=== PATIENT | male | born 1940 | race Caucasian/White ===

== ENCOUNTER 2022-03-16 16:15 | Outpatient (CLI) | payer MEDICARE | END 2022-03-16 16:16 | disposition home or self-care (01) | LOC: LABBT 16:15 | PROVIDERS: ATTEND Ophthalmology Retina Specialist | DX: H35.342 Macular cyst, hole, or pseudohole, left eye (principal); H54.7 Unspecified visual loss; Z20.822 Contact with and (suspected) exposure to COVID-19 | CPT/HCPCS: 87811 ==

== ENCOUNTER 2022-03-18 06:37 | Day surgery (SDC) | payer MEDICARE ==
[2022-03-16 16:25] VITALS: BMI 21.3
[~2022-03-18 06:37] MED LIST: Fluorouracil 100 MG, Enoxaparin Sodium 25 MG, EPINEPHrine 0.3 MG in Ophthalmic Irrigati... IRR SCH; Midazolam HCl 2 mg/2 ml Vial ONE; fentaNYL Citrate/PF 100 MCG/2 ML SYRINGE ONE
[2022-03-18] MEDS ORDERED: Cyclopentolate 1% Opth Drop 2 ML BOT ONE (06:53)
[2022-03-18] MEDS ORDERED: Phenylephrine 2.5% Ophth Soln 5 ML BOT ONE (06:53)
[2022-03-18] MEDS ORDERED: PROPOFOL 200 MG/20 ML VIAL ONE (07:58)
[2022-03-18] MEDS ORDERED: Lidocaine 1% MPF 2 ML VIAL ONE (07:58)
[2022-03-18] MEDS ORDERED: Indocyanine Green 25 MG/10 ML VIAL ONE (07:58)
[2022-03-18] MEDS ORDERED: Lidocaine 4% PF 5 ML AMP ONE (07:58)
[2022-03-18] MEDS ORDERED: Triamcinolone 40 MG/ML VIAL ONE (07:58)
[2022-03-18] MEDS ORDERED: Bupivacaine 0.75% 10 ML VIAL ONE (07:58)
[2022-03-18] MEDS ORDERED: Enoxaparin Sodium 30 MG/0.3 ML SYRINGE ONE (07:58)
[2022-03-18] MEDS ORDERED: CEFAZOLIN 1 GM VIAL ONE (07:58)
[2022-03-18] MEDS ORDERED: Erythromycin Base 0.5% Oint 1 GM TUBE EA EYE SCH (08:00)
== END 2022-03-18 10:00 | disposition home or self-care (01) ==
LOC: SDC 06:37
PROVIDERS: ATTEND Ophthalmology Retina Specialist
PROC: 08T53ZZ Resection of Left Vitreous, Percutaneous Approach (ICD-10-PCS; principal; 2022-03-18)
PROC: 08NF3ZZ Release Left Retina, Percutaneous Approach (ICD-10-PCS; 2022-03-18)
DX: H35.342 Macular cyst, hole, or pseudohole, left eye (principal); Z79.82 Long term (current) use of aspirin; Z79.84 Long term (current) use of oral hypoglycemic drugs; Z79.899 Other long term (current) drug therapy; Z88.1 Allergy status to other antibiotic agents; Z95.1 Presence of aortocoronary bypass graft
CPT/HCPCS: 67025; J0171; J0690; J1650; J2250; J2704; J3301; J3490; J9190

== ENCOUNTER 2022-05-08 13:45 | Emergency (ER) | payer MEDICARE, OTHER ==
[2022-05-08 14:21] LABS: #Basophils 0.1 thou/uL (0.0-0.2); #Eosinphils 0.3 thou/uL (0.0-0.7); #Lymphocytes 2.1 thou/uL (1.20-3.40); #Monocytes 0.9 thou/uL (0.11-0.59); #Neutrophils 7.3 thou/uL (1.40-6.50); %Basophils 0.8 % (0.0-1.0); %Eosinophils 2.7 % (0.0-10.0); %Lymphocytes 19.3 % (21.0-51.0); %Monocytes 8.4 % (0.0-10.0); %Neutrophils 68.9 % (42.0-75.0); Mean Corpuscular Hemoglobin 32.8 pg (27.0-31.0); Mean Corpuscular Volume 93.6 fl (78.0-98.0); Mean Platelet Volume 6.6 fL (7.4-10.4); Platelet Count 235 thou/uL (130-400); Red Blood Cell (RBC) Count 4.26 mill/uL (4.70-6.10); White Blood Cell (WBC) Count 10.6 thou/uL (4.8-10.8)
[2022-05-08 14:37] LABS: ALT (SGPT) 16 U/L (8-55); AST (SGOT) 19 U/L (5-34); Albumin 4.1 g/dL (3.4-4.8); Alkaline Phosphatase 92 U/L (40-110); Anion Gap 12 mmol/L (10-20); BUN (Urea Nitrogen) 14 mg/dL (8.4-25.7); Bilirubin, Total 0.5 mg/dL (0.2-1.2); Calc. Creatinine Clearance 0 mL/min (70-130); Calcium 9.6 mg/dL (7.8-10.44); Carbon Dioxide 23 mmol/L (23-31); Chloride 101 mmol/L (98-107); Estimated GFR 90; Globulin 2.8 g/dL (2.4-3.5); Glucose 135 mg/dL (83-110); Potassium 4.3 mmol/L (3.5-5.1); Protein, Total 6.9 g/dL (5.8-8.1); Sodium 132 mmol/L (136-145)
[2022-05-08 14:49] LABS: Bilirubin Negative (Negative); Blood, Urine Large (Negative); Glucose, Urine (Dipstick) Negative (Negative); Ketone, Urine Negative (Negative); Leukocyte Negative (Negative); Nitrite Negative (Negative); Protein, Urine (Dipstick) 30 mg/dL (Neg-Trace); Urobilinogen 0.2 mg/dL (Less than 2)
[2022-05-08 14:51] LABS: Clarity Turbid (Clear)
[2022-05-08 14:58] LABS: Bacteria/HPF Rare-Few HPF (None Seen); RBC/HPF Greater than 50 HPF (0-3); WBC/HPF 0-3 HPF (0-3)
== END 2022-05-08 16:30 | disposition home or self-care (01) ==
LOC: ERS 13:45
DX: R31.9 Hematuria, unspecified (principal); R30.0 Dysuria; E78.5 Hyperlipidemia, unspecified; I10 Essential (primary) hypertension; J44.9 Chronic obstructive pulmonary disease, unspecified; E11.9 Type 2 diabetes mellitus without complications; Z79.84 Long term (current) use of oral hypoglycemic drugs; Z79.899 Other long term (current) drug therapy
CPT/HCPCS: 36415; 74176; 80053; 81003; 81015; 85025; 85610; 85730

== ENCOUNTER 2022-06-18 08:22 | Outpatient (CLI) | payer OTHER | END 2022-06-18 08:23 | disposition home or self-care (01) | LOC: NM 08:22 | PROVIDERS: ATTEND Urology | DX: C61 Malignant neoplasm of prostate (principal) | CPT/HCPCS: 78306; A9503 ==

== ENCOUNTER 2022-10-19 16:16 | Inpatient (IN) | payer MEDICARE, OTHER ==
[2022-10-19] MEDS ORDERED: Insulin Regular 300 UNITS/3 ML VIAL SC PRN (18:17)
[2022-10-19] MEDS ORDERED: Dextrose 50% Abboject 50 ML SYRINGE SLOW IVP PRN (18:17)
[2022-10-19] MEDS ORDERED: Ondansetron PF 4 MG/2 ML Vial IVP PRN (18:17)
[2022-10-19] MEDS ORDERED: Morphine 2 MG/ML VIAL SLOW IVP PRN (18:17)
[2022-10-19] MEDS ORDERED: Ipratropium/Albuterol 3 ML NEB NEB PRN (18:17)
[2022-10-19] MEDS ORDERED: Dextrose 5% in Water 1,000 ML IV PRN (18:17)
[2022-10-19] MEDS ORDERED: Promethazine HCl 25 MG/ML VIAL IM PRN (18:17)
[2022-10-19] MEDS ORDERED: Non-Formulary Item 1 EACH (Albuterol Hfa (Or) 200 PUFF Inh) INH PRN (18:20)
[2022-10-19] MEDS ORDERED: traMADol HCl 50 MG TAB PO PRN (18:28)
[2022-10-19] MEDS ORDERED: Cyclobenzaprine 10 MG TAB PO PRN (18:28)
[2022-10-19] MEDS ORDERED: Ipratropium Bromide 2.5 ml Neb NEB PRN (18:29)
[2022-10-19] MEDS ORDERED: Acetaminophen 500 MG TAB PO SCH (18:30)
[2022-10-19] MEDS ORDERED: Sodium Chloride 0.9% 1,000 ML IV SCH (18:30)
[2022-10-19] MEDS: Mometasone/Formoterol 200/5 60 PUFF INH SCH (19:23)
[2022-10-19 19:41] VITALS: BMI 22.2
[2022-10-19] MEDS: Famotidine/PF 20 mg/2ml Vial SLOW IVP SCH (21:21)
[2022-10-19] MEDS: Melatonin 3 MG TAB PO SCH (21:21)
[2022-10-19] MEDS: Senokot S 8.6-50 MG TAB PO SCH (21:22)
[2022-10-19] MEDS: Atorvastatin Calcium 40 MG TAB PO SCH (21:22)
[2022-10-19] MEDS: Tamsulosin HCl 0.4 MG CAP PO SCH (21:22)
[2022-10-19] MEDS: Gabapentin 100 MG CAP PO SCH (21:22)
[2022-10-19] MEDS: Acetaminophen 500 MG TAB PO SCH (23:35)
[2022-10-19] MEDS: traMADol HCl 50 MG TAB PO SCH (23:37)
[2022-10-20] MEDS ORDERED: Sevoflurane 250 ML INH ANEST BOTTLE ONE (04:27)
[2022-10-20] MEDS: traMADol HCl 50 MG TAB PO SCH ×3 (05:14→17:27)
[2022-10-20] MEDS: Acetaminophen 500 MG TAB PO SCH ×3 (05:15→17:27)
[2022-10-20 07:05] LABS: #Eosinphils 0.1 thou/uL (0.0-0.7); #Lymphocytes 1.4 thou/uL (1.20-3.40); #Monocytes 0.9 thou/uL (0.11-0.59); %Basophils 0.4 % (0.0-1.0); %Eosinophils 1.1 % (0.0-10.0); %Lymphocytes 13.6 % (21.0-51.0); %Monocytes 8.7 % (0.0-10.0); %Neutrophils 76.1 % (42.0-75.0); Hemoglobin 10.6 g/dL (14.0-18.0); Mean Corpuscular HGB CONC 35.1 g/dL (32.0-36.0); Mean Corpuscular Hemoglobin 33.2 pg (27.0-31.0); Mean Corpuscular Volume 94.4 fl (78.0-98.0); Mean Platelet Volume 7.4 fL (7.4-10.4); Platelet Count 183 10x3/uL (130-400); RBC Distribution Width 11.9 % (11.5-14.5); Red Blood Cell (RBC) Count 3.19 mill/uL (4.70-6.10); White Blood Cell (WBC) Count 10.5 10x3/uL (4.8-10.8)
[2022-10-20 07:15] LABS: PTT 31.1 sec (22.9-36.1)
[2022-10-20 07:23] LABS: Anion Gap 12 mmol/L (10-20); BUN (Urea Nitrogen) 17 mg/dL (8.4-25.7); Calc. Creatinine Clearance 63 mL/min (70-130); Calcium 9.1 mg/dL (7.8-10.44); Carbon Dioxide 25 mmol/L (23-31); Chloride 101 mmol/L (98-107); Estimated GFR 88; Glucose 152 mg/dL (83-110); Potassium 4.7 mmol/L (3.5-5.1); Sodium 133 mmol/L (136-145)
[2022-10-20] MEDS ORDERED: CEFAZOLIN 2 GM in Sodium Chloride 0.9% 100 ML IVPB SCH (08:00)
[2022-10-20] MEDS: Gabapentin 100 MG CAP PO SCH ×3 (08:50→19:48)
[2022-10-20] MEDS: Famotidine/PF 20 mg/2ml Vial SLOW IVP SCH ×2 (08:50→20:15)
[2022-10-20] MEDS: Amlodipine 5 MG TAB PO SCH (08:50)
[2022-10-20] MEDS: Magnesium Oxide 250 MG TAB PO SCH (08:51)
[2022-10-20] MEDS: Senokot S 8.6-50 MG TAB PO SCH ×2 (08:51→19:48)
[2022-10-20] MEDS: Polyethylene Glycol 3350 17 GM Packet PO SCH (08:51)
[2022-10-20] MEDS ORDERED: fentaNYL PF 100 MCG/2 ML SYRINGE ONE (11:59)
[2022-10-20] MEDS ORDERED: CEFAZOLIN 2 GM VIAL ONE (12:07)
[2022-10-20] MEDS ORDERED: Sodium Chloride 0.9% 100 ML ONE (12:07)
[2022-10-20] MEDS ORDERED: Phenylephrine 10 MG/ML VIAL ONE (12:20)
[2022-10-20] MEDS ORDERED: Dexamethasone 20 MG/5 ML VIAL ONE (12:20)
[2022-10-20] MEDS ORDERED: Lidocaine 1% PF 5 ML VIAL ONE (12:20)
[2022-10-20] MEDS ORDERED: Succinylcholine Chloride 100 MG/5 ML SYRINGE FS ONE (12:20)
[2022-10-20] MEDS ORDERED: PROPOFOL 200 MG/20 ML VIAL ONE (12:20)
[2022-10-20] MEDS ORDERED: Rocuronium Bromide 10 MG/ML (10ML VIAL) ONE (12:20)
[2022-10-20] MEDS ORDERED: Ondansetron PF 4 MG/2 ML Vial ONE (12:20)
[2022-10-20] MEDS ORDERED: ePHEDrine Sulfate 50 MG/10 ML VIAL ONE (12:20)
[2022-10-20] MEDS: Mometasone/Formoterol 200/5 60 PUFF INH SCH ×2 (12:25→19:28)
[2022-10-20] MEDS: CEFAZOLIN 2 GM in Sodium Chloride 0.9% 100 ML IVPB SCH (17:28)
[2022-10-20] MEDS ORDERED: Acetaminophen/Codeine 30-300mg Tablet PO SCH (19:00)
[2022-10-20] MEDS ORDERED: QUEtiapine 25 MG TAB PO SCH ×2 (19:00→20:00)
[2022-10-20] MEDS: Atorvastatin Calcium 40 MG TAB PO SCH (19:48)
[2022-10-20] MEDS: Tamsulosin HCl 0.4 MG CAP PO SCH (19:48)
[2022-10-20] MEDS: Melatonin 3 MG TAB PO SCH (22:14)
[2022-10-20] MEDS: Acetaminophen/Codeine 30-300mg Tablet PO SCH ×2 (23:22→23:28)
[2022-10-20] MEDS: Acetaminophen 325 MG TAB PO SCH ×2 (23:22→23:28)
[2022-10-21] MEDS: CEFAZOLIN 2 GM in Sodium Chloride 0.9% 100 ML IVPB SCH (02:49)
[2022-10-21] MEDS: Acetaminophen/Codeine 30-300mg Tablet PO SCH ×3 (05:54→18:01)
[2022-10-21] MEDS: Acetaminophen 325 MG TAB PO SCH ×3 (05:56→18:01)
[2022-10-21 06:31] LABS: #Lymphocytes 0.9 thou/uL (1.20-3.40); #Monocytes 1.1 thou/uL (0.11-0.59); #Neutrophils 12.4 thou/uL (1.40-6.50); %Basophils 0.1 % (0.0-1.0); %Eosinophils 0.1 % (0.0-10.0); %Lymphocytes 6.4 % (21.0-51.0); %Monocytes 7.5 % (0.0-10.0); %Neutrophils 85.9 % (42.0-75.0); Hemoglobin 9.4 g/dL (14.0-18.0); Mean Corpuscular HGB CONC 35.1 g/dL (32.0-36.0); Mean Corpuscular Hemoglobin 33.3 pg (27.0-31.0); Mean Corpuscular Volume 94.7 fl (78.0-98.0); Mean Platelet Volume 7.6 fL (7.4-10.4); Platelet Count 169 10x3/uL (130-400); RBC Distribution Width 11.9 % (11.5-14.5); Red Blood Cell (RBC) Count 2.81 mill/uL (4.70-6.10); White Blood Cell (WBC) Count 14.5 10x3/uL (4.8-10.8)
[2022-10-21 07:01] LABS: Anion Gap 13 mmol/L (10-20); BUN (Urea Nitrogen) 18 mg/dL (8.4-25.7); Calc. Creatinine Clearance 61 mL/min (70-130); Calcium 8.9 mg/dL (7.8-10.44); Carbon Dioxide 22 mmol/L (23-31); Chloride 100 mmol/L (98-107); Estimated GFR 87; Glucose 147 mg/dL (83-110); Magnesium 1.6 mg/dL (1.6-2.6); Potassium 4.4 mmol/L (3.5-5.1); Sodium 131 mmol/L (136-145)
[2022-10-21] MEDS: Mometasone/Formoterol 200/5 60 PUFF INH SCH ×2 (07:10→18:41)
[2022-10-21] MEDS ORDERED: Magnesium 2 GM/50 ML(in water) 2 GM in Premix Bag 1 BAG IVPB SCH ×2 (08:00→08:30)
[2022-10-21] MEDS ORDERED: Sodium Chloride 0.9% 500 ML IV SCH (08:30)
[2022-10-21] MEDS: Magnesium Oxide 250 MG TAB PO SCH (08:41)
[2022-10-21] MEDS: Gabapentin 100 MG CAP PO SCH ×3 (08:41→20:59)
[2022-10-21] MEDS: Amlodipine 5 MG TAB PO SCH (08:41)
[2022-10-21] MEDS: Aspirin 81 mg Enteric Coated Tablet PO SCH ×2 (08:41→20:59)
[2022-10-21] MEDS: Polyethylene Glycol 3350 17 GM Packet PO SCH (08:42)
[2022-10-21] MEDS: Senokot S 8.6-50 MG TAB PO SCH ×2 (08:54→21:00)
[2022-10-21] MEDS: Famotidine 20 MG TAB PO SCH ×2 (09:47→20:59)
[2022-10-21] MEDS: prednisoLONE 1% Ophth Susp 5 ml Bottle R EYE SCH ×4 (09:47→21:00)
[2022-10-21] MEDS: Lactated Ringer's 1,000 ML IV SCH (11:35)
[2022-10-21] MEDS: Atorvastatin Calcium 40 MG TAB PO SCH (20:59)
[2022-10-21] MEDS: Tamsulosin HCl 0.4 MG CAP PO SCH (21:00)
[2022-10-21] MEDS ORDERED: QUEtiapine 25 MG TAB PO SCH (21:00)
[2022-10-21] MEDS: Melatonin 3 MG TAB PO SCH (21:00)
[2022-10-22] MEDS: Acetaminophen/Codeine 30-300mg Tablet PO SCH ×2 (01:13→06:10)
[2022-10-22] MEDS: Acetaminophen 325 MG TAB PO SCH ×2 (01:13→06:10)
[2022-10-22] MEDS: Lactated Ringer's 1,000 ML IV SCH (04:24)
[2022-10-22 06:25] LABS: #Eosinphils 0.1 thou/uL (0.0-0.7); #Lymphocytes 2.1 thou/uL (1.20-3.40); #Monocytes 1.1 thou/uL (0.11-0.59); #Neutrophils 7.3 thou/uL (1.40-6.50); %Basophils 0.4 % (0.0-1.0); %Eosinophils 1.1 % (0.0-10.0); %Lymphocytes 19.8 % (21.0-51.0); %Neutrophils 68.7 % (42.0-75.0); Mean Corpuscular HGB CONC 35.6 g/dL (32.0-36.0); Mean Corpuscular Hemoglobin 33.6 pg (27.0-31.0); Mean Corpuscular Volume 94.5 fl (78.0-98.0); Mean Platelet Volume 7.7 fL (7.4-10.4); Platelet Count 151 10x3/uL (130-400); Red Blood Cell (RBC) Count 2.37 mill/uL (4.70-6.10); White Blood Cell (WBC) Count 10.6 10x3/uL (4.8-10.8)
[2022-10-22 06:50] LABS: Anion Gap 13 mmol/L (10-20); BUN (Urea Nitrogen) 25 mg/dL (8.4-25.7); Calc. Creatinine Clearance 63 mL/min (70-130); Calcium 8.6 mg/dL (7.8-10.44); Carbon Dioxide 23 mmol/L (23-31); Chloride 99 mmol/L (98-107); Estimated GFR 88; Glucose 126 mg/dL (83-110); Magnesium 1.9 mg/dL (1.6-2.6); Phosphorus 2.8 mg/dL (2.3-4.7); Potassium 4.5 mmol/L (3.5-5.1); Sodium 130 mmol/L (136-145)
[2022-10-22] MEDS: Mometasone/Formoterol 200/5 60 PUFF INH SCH (07:08)
[2022-10-22] MEDS ORDERED: Ferrous Sulfate 325 MG TAB PO SCH ×2 (08:00→09:00)
[2022-10-22 08:25] VITALS: TEMP 98.3
[2022-10-22] MEDS ORDERED: Ascorbic Acid 500 mg Chewable Tablet PO SCH (09:00)
[2022-10-22] MEDS ORDERED: Amlodipine 5 MG TAB PO SCH (09:00)
[2022-10-22] MEDS: prednisoLONE 1% Ophth Susp 5 ml Bottle R EYE SCH ×2 (09:51→13:32)
[2022-10-22] MEDS: Magnesium Oxide 250 MG TAB PO SCH (09:51)
[2022-10-22] MEDS: Senokot S 8.6-50 MG TAB PO SCH (09:51)
[2022-10-22] MEDS: Famotidine 20 MG TAB PO SCH (09:51)
[2022-10-22] MEDS: Polyethylene Glycol 3350 17 GM Packet PO SCH (09:52)
[2022-10-22] MEDS: Aspirin 81 mg Enteric Coated Tablet PO SCH (09:52)
[2022-10-22] MEDS: Gabapentin 100 MG CAP PO SCH ×2 (09:52→15:15)
[2022-10-22] MEDS ORDERED: Ibuprofen 200 MG TAB PO PRN (10:31)
[2022-10-22] MEDS ORDERED: Acetaminophen/Codeine 30-300mg Tablet PO SCH (12:00)
[2022-10-22 12:01] VITALS: BP 127/61
[2022-10-22] MEDS ORDERED: Sodium Chloride 1 GM TAB PO SCH (14:00)
== END 2022-10-22 16:52 | DRG 481 ==
LOC: SURG A 18:04
PROVIDERS: ADMIT Surgery; ATTEND Surgery
PROC: 0QS704Z Reposition Left Upper Femur with Internal Fixation Device, Open Approach (ICD-10-PCS; principal; 2022-10-20)
DX: S72.142A Displaced intertrochanteric fracture of left femur, initial encounter for closed fracture (principal); E87.1 Hypo-osmolality and hyponatremia; E11.9 Type 2 diabetes mellitus without complications; I10 Essential (primary) hypertension; N40.0 Benign prostatic hyperplasia without lower urinary tract symptoms; J44.9 Chronic obstructive pulmonary disease, unspecified; F32.A Depression, unspecified; F03.90 Unspecified dementia, unspecified severity, without behavioral disturbance, psychotic disturbance, mood disturbance, and anxiety; F41.9 Anxiety disorder, unspecified; W10.9XXA Fall (on) (from) unspecified stairs and steps, initial encounter; E86.0 Dehydration; I25.10 Atherosclerotic heart disease of native coronary artery without angina pectoris; Z87.891 Personal history of nicotine dependence; Z95.1 Presence of aortocoronary bypass graft; Z79.899 Other long term (current) drug therapy; Z79.82 Long term (current) use of aspirin
CPT/HCPCS: 36415; 36416; 80048; 83735; 84100; 85025; 85610; 85730; 86850; 86900; 86901; 93005; 93010; C1713; J1100; J1815; J2370; J2405; J2704; J3475; J3490; J7030; J7050; J7120; S0028